=== PATIENT | female | born 1985 | race Caucasian/White ===

== ENCOUNTER → 2019-07-04 16:40 | Outpatient (CLI) | payer MEDICAID, SELFPAY ==
[2019-07-04 16:56] LABS: Basophils # 0.1 K/mm3 (0-0.2); Basophils % 1.1 % (0.1-2.0); Eosinophils # 0.2 K/mm3 (0.0-0.4); Eosinophils % 3.9 % (0.1-12.0); Hematocrit 35.8 % (37.0-47.0); Hemoglobin 12.1 g/dL (12.2-16.2); Lymphocytes # 1.8 K/mm3 (0.7-4.5); Mean Corpuscular HGB Conc 33.9 g/dL (31.8-35.4); Mean Corpuscular Hemoglobin 32.6 pg (27.0-31.2); Mean Platelet Volume 8.5 fl (7.4-10.4); Monocytes # 0.2 K/mm3 (0.1-1.0); Monocytes % 4.2 % (1.7-9.3); Neutrophils % 48.8 % (37.0-80.0); Platelet Count 159 K/mm3 (142-424); Red Blood Count 3.73 M/mm3 (4.20-5.40); Red Cell Distribution Width 13.3 % (11.5-17.5); White Blood Count 4.2 K/mm3 (4.8-10.8)
[2019-07-04 17:07] LABS: Monoscreen (Rapid) Negative (Negative)
[2019-07-04 19:00] LABS: Alanine Aminotransferase 81 U/L (12-78); Albumin Level 3.6 gm/dL (3.4-5.0); Albumin/Globulin Ratio 1.3 (1.1-1.8); Alkaline Phosphatase 45 U/L (46-116); Anion Gap 9.3 mEq/L (5-15); Aspartate Amino Transferase 60 U/L (15-37); Bilirubin,Total 0.3 mg/dL (0.2-1.0); Blood Urea Nitrogen 10 mg/dL (7-18); Calcium 8.5 mg/dL (8.5-10.1); Carbon Dioxide 28 mmol/L (21.0-32.0); Chloride 107 mmol/L (98-107); Creatinine,Serum 0.96 mg/dL (0.55-1.02); Estimated Glomerular Filt Rate 67 ml/min (>60); GFR (African American) 81 ML/MIN (>60); Globulin 2.8 gm/dl (1.3-3.2); Glucose 84 mg/dL (74-106); Potassium 4.3 mmoL/L (3.5-5.1); Sodium 140 mmol/L (136-145); T4 (Thyroxine) 7.5 ug/dl (4.7-13.3); Thyroid Stimulating Hormone 0.42 uIU/ml (0.358-3.740); Total Protein,Serum 6.4 gm/dL (6.4-8.2)
== END ==
PROVIDERS: Visit Provider Nurse Practitioner Family
DX: J02.9 Acute pharyngitis, unspecified (principal); R13.10 Dysphagia, unspecified
CPT/HCPCS: 36415; 80053; 84436; 84443; 85025; 86318

== ENCOUNTER → 2019-07-21 14:04 | Outpatient (CLI) | payer MEDICAID, SELFPAY ==
[2019-07-21 16:38] LABS: Amphetamine/Metha Screen,Urine Positive ng/mL (<1000); Barbiturates Screen,Urine Negative ng/mL (<200); Benzodiazepines Screen,Urine Positive ng/mL (<200); Cannabinoid Screen,Urine Negative ng/mL (<50); Cocaine Screen,Urine Negative ng/mL (<300); Methadone Screen,Urine Negative ng/mL (<300); Opiate Screen,Urine Negative ng/mL (<300); Phencyclidine Screen,Urine Negative ng/mL (<25)
== END ==
PROVIDERS: Visit Provider Emergency Medicine
DX: Z79.899 Other long term (current) drug therapy (principal)
CPT/HCPCS: 80305

== ENCOUNTER → 2019-08-04 12:50 | Outpatient (CLI) | payer MEDICAID, SELFPAY ==
[2019-08-04 13:23] LABS: Amphetamine/Metha Screen,Urine Negative ng/ml (<1000); Barbiturates Screen,Urine Negative ng/ml (<200)
[2019-08-04 13:24] LABS: Benzodiazepines Screen,Urine Negative ng/ml (<200)
[2019-08-04 13:25] LABS: Cannabinoid Screen,Urine Negative ng/ml (<50)
[2019-08-04 13:26] LABS: Cocaine Screen,Urine Negative ng/ml (<300); Methadone Screen,Urine Negative ng/ml (<300)
[2019-08-04 13:27] LABS: Opiate Screen,Urine Negative ng/ml (<300); Phencyclidine Screen,Urine Negative ng/ml (<25)
== END ==
PROVIDERS: Visit Provider Nurse Practitioner Psychiatric/Mental Health
DX: F11.10 Opioid abuse, uncomplicated (principal)
CPT/HCPCS: 80305

== ENCOUNTER → 2019-08-07 11:56 | Outpatient (CLI) | payer MEDICAID, SELFPAY ==
[2019-08-07 12:33] LABS: Barbiturates Screen,Urine Negative ng/ml (<200)
[2019-08-07 12:34] LABS: Amphetamine/Metha Screen,Urine Negative ng/ml (<1000); Benzodiazepines Screen,Urine Negative ng/ml (<200)
[2019-08-07 12:35] LABS: Cannabinoid Screen,Urine Negative ng/ml (<50)
[2019-08-07 12:36] LABS: Cocaine Screen,Urine Negative ng/ml (<300); Methadone Screen,Urine Negative ng/ml (<300)
[2019-08-07 12:37] LABS: Opiate Screen,Urine Negative ng/ml (<300)
[2019-08-07 12:38] LABS: Phencyclidine Screen,Urine Negative ng/ml (<25)
== END ==
PROVIDERS: Visit Provider Nurse Practitioner Psychiatric/Mental Health
DX: F19.20 Other psychoactive substance dependence, uncomplicated (principal)
CPT/HCPCS: 80305

== ENCOUNTER → 2019-10-30 13:01 | Outpatient (CLI) | payer MEDICAID, SELFPAY ==
[2019-10-30 13:34] LABS: Benzodiazepines Screen,Urine Negative ng/ml (<200)
[2019-10-30 13:35] LABS: Amphetamine/Metha Screen,Urine Negative ng/ml (<1000); Barbiturates Screen,Urine Negative ng/ml (<200)
[2019-10-30 13:36] LABS: Cannabinoid Screen,Urine Positive ng/ml (<50)
[2019-10-30 13:37] LABS: Methadone Screen,Urine Negative ng/ml (<300)
[2019-10-30 13:38] LABS: Opiate Screen,Urine Negative ng/ml (<300)
[2019-10-30 13:39] LABS: Phencyclidine Screen,Urine Negative ng/ml (<25)
[2019-11-07 22:10] LABS: Benzoylecgonine (GC/MS) 111520 ng/mL (Cutoff=150); Cocaine + Metabolite Positive (.)
== END ==
PROVIDERS: Visit Provider Nurse Practitioner Psychiatric/Mental Health
DX: Z02.83 Encounter for blood-alcohol and blood-drug test (principal); Z79.899 Other long term (current) drug therapy
CPT/HCPCS: 80305; 80353

== ENCOUNTER → 2020-01-07 13:46 | Outpatient (CLI) | payer MEDICAID, SELFPAY | PROVIDERS: PCP Nurse Practitioner Family; Visit Provider Emergency Medicine | DX: R56.9 Unspecified convulsions (principal) ==

== ENCOUNTER 2020-02-19 13:37 | Emergency (ER) | payer MEDICAID, SELFPAY ==
[2020-02-19 14:22] VITALS: BP 129/81; PULSE 110; RESP 21; TEMP 36.9; O2SAT 99; BMI 45.3
--- NOTE | 2020-02-19 14:32 | HMH.EDUTC ---
[facility] [place] Disposition Clinical Impression: Vomiting and diarrhea Disposition: Home, Self-Care Condition on Discharge: Good Instructions: Diarrhea, DI for Vomiting -- Adult, Nausea and Vomiting-Adult, Ondansetron Additional Instructions: ? Drink extra fluids with and between meals. If you have difficulty drinking, try very small amounts of water or suck on ice chips. ? Avoid fruit juices, as these do not replace minerals and can actually increase diarrhea. ? Children and adults can use sports drinks to replenish electrolytes. Younger children and infants should use products formulated for children, like oral rehydration solutions. ? Eat food in small amounts and let your stomach recover. ? Get lots of rest. You may feel tired or weak. ? No greasy or fried foods for the next 24-48 hours BRAT diet Bananas Rice Apples and [place] ? Make sure to drink plenty of liquids ? Return if needed ? Straight to ER if any life threatening symptoms ? Zofran as prescribed ? You was given an outpatient order for diarrhea panel, please collect specimen and bring back to outpatient lab then call back to the [facility] [place] or follow up with family doctor for results ? Follow up with family doctor in the next 48-72 hours if no improvement or any worsening of symptoms Prescriptions: Ondansetron [Zofran 4mg ODT] 4 mg PO Q8HP PRN #6 tab.rapdis PRN Reason: Nausea Transmission Status: Pending to [id number] Referrals: Jakub Babb MD [Primary Care Provider] - As needed Time of Disposition: 15:09 Medical Decision Making - Lucian Inquiry Pt receiving controlled substance: No Lucian was queried for this patient: No Vital Signs: 02/19/20 14:22 Temperature 98.4 F Temperature Source Oral Pulse Rate [Right Brachial] 110 H Respiratory Rate 21 Blood Pressure [Right Arm] 129/81 Blood Pressure Mean [Right Arm] 97 Blood Pressure Source [Right Arm] Automatic Cuff Blood Pressure Position [Right Arm] Sitting 02 Sat by Pulse Oximetry 99 Oxygen Delivery Method Room Air Orders (Tests/Meds): ED MEDICATIONS Discontinued Medications Generic Name Dose Route Start Last Admin Trade Name Freq PRN Reason Stop Dose Admin Ondansetron HCl 4 mg 02/19/20 14:36 02/19/20 14:54 Zofran 4mg Odt SL 02/19/20 14:37 4 mg ONCE ONE Administration ORDERS Category Date Time Status Covid-19 Nasal PCR Sendout [facility] 02/19/20 14:47 Received Medical Decision Narrative: No vomiting or diarrhea since arrival Upon discharge patient reports that she is out of her seroquil wanting refil called pharmacy and approved 1 week (7days) [place] of her seroquil 400mg daily and she would need to make appointment with Ivory Monae for refill [facility] [place] HPI - General Stated complaint: Vomiting, diarrhea, fever Time Seen by Provider: 02/19/20 14:32 Mode of Arrival: Ambulatory Source of Information: Patient Limitations: No Limitations Description of Symptoms (Recalled from Triage Doc. by RN): PATIENT C/O VOMITING, DIARRHEA, AND INSOMNIA X 2 DAYS. STATES SHE DID HAVE A LOW-GRADE FEVER THIS MORNING HEENT Symptoms (Recalled from RN notes): No Resp Symptoms (Recalled from RN notes): No Skin Symptoms (Recalled from RN notes): No MS Symptoms (Recalled from RN notes): No Functional Status (Recalled from RN notes): WNL - History of Present Illness Provider Complaint: Patient states that she has been having vomiting and diarrhea for the last 2 days States that she has been able to keep down some fluids but no food States that she has been having body aches and chills also and this morning had a low grade fever - Related Data Home Medications Medication Instructions Recorded Confirmed multivit,Ca,suo-jdzx-HE-guarana-caff tab PO 06/30/19 01/19/20 18 mg iron-400 mcg-180 mg tablet atorvastatin 40 mg tablet 40 mg PO DAILY tab 10/28/19 01/19/20 naltrexone microspheres 380 mg mg IM 12/02/19 01/19/20 intramuscular suspension,extended release Previous Rx's
[2020-02-19 15:08] VITALS: PULSE 80
[2020-02-19 15:15] VITALS: BP 129/81; PULSE 80; RESP 21; TEMP 36.9; O2SAT 99
[2020-02-21 14:41] LABS: Covid-19 Nasal PCR Sendout Lex Not Detected
== END 2020-02-19 15:16 | disposition home or self-care (01) ==
PROVIDERS: Emergency Provider Nurse Practitioner; PCP Emergency Medicine
DX: R11.10 Vomiting, unspecified (principal); Z03.818 Encounter for observation for suspected exposure to other biological agents ruled out; F41.8 Other specified anxiety disorders; F12.10 Cannabis abuse, uncomplicated; Z87.891 Personal history of nicotine dependence; Z21 Asymptomatic human immunodeficiency virus [HIV] infection status
CPT/HCPCS: 99202; U0004

== ENCOUNTER → 2020-08-31 14:33 | Outpatient (CLI) | payer MEDICAID, SELFPAY ==
--- NOTE | 2020-08-31 14:33 | CT_ITS ---
PROCEDURE: CT ABDOMEN PELVIS WO CON CLINICAL INDICATION: recurrent hernia with mesh COMPARISON: No exams were available for comparison TECHNIQUE: Axial images obtained with sagittal and coronal reformats. All CT scans at the facility use one or more dose reduction, viz: automated exposure control, ma/kV adjustment per patient size (including targeted exams where dose is matched to indication, i.e. head), or iterative reconstruction technique. FINDINGS: LOWER THORAX: 4 mm noncalcified nodule right middle lobe along the minor fissure. Small cluster of calcified nodules in the left lower lobe. 4 mm subpleural nodule right lower lobe ABDOMEN & PELVIS: Cholelithiasis. Indeterminate 7 mm hypodense nodule in the right hepatic lobe posteriorly and medially. Indeterminate 4 mm nodule right hepatic lobe posteriorly. The spleen, adrenal glands, pancreas, and kidneys have an unremarkable unenhanced appearance. There scattered small retroperitoneal lymph nodes. There is a surgical clip in the right upper quadrant anterior to the left hepatic lobe. There are postsurgical changes from ventral hernia repair 3.6 cm cephalad to the umbilicus. There is a hernia sac containing fat anterior to the mesh into the subcutaneous tissues. There are no previous exams available to determine if this is new or old. Mesh is present deep to this region along the abdominal wall. Tiny umbilical hernia containing fat is noted. Mesh is also posterior to the umbilical region. No evidence of appendicitis. No intestinal obstruction or free air. Tubal ligation clips are present in the adnexal region. No pelvic mass or abnormal fluid collection. Air density noted in the region the vagina consistent with a tampon. No acute bony findings. IMPRESSION: 1. Prior hernia repair with surgical mesh noted posterior to the supraumbilical ventral abdominal wall hernia and small umbilical hernia. There is a hernia sac containing fat within the subcutaneous tissues in the supraumbilical region. Correlation with old exam suggested if available to determine if this is new or old. No previous studies available at this institution 2. Cholelithiasis 3. Nonspecific hypodensities of the liver. These may be better evaluated with CT or MRI with hemangioma protocol 4. Small pulmonary nodules which are nonspecific. Annual follow-up may confirm stability Dictated by: Ephraim Garcia MD 09/01/2020 06:38 Ephraim Garcia MD in [place] 09/01/2020 06:38
== END ==
PROVIDERS: PCP Emergency Medicine; Visit Provider Surgery
DX: K43.9 Ventral hernia without obstruction or gangrene (principal)
CPT/HCPCS: 74176

== ENCOUNTER → 2020-09-07 10:51 | Outpatient (CLI) | payer MEDICAID, SELFPAY ==
[2020-09-07 11:34] LABS: Basophils # 0.1 K/mm3 (0-0.2); Basophils % 0.7 % (0.1-2.0); Eosinophils # 0.2 K/mm3 (0.0-0.4); Eosinophils % 2.7 % (0.1-12.0); Hemoglobin 13.8 g/dL (12.2-16.2); Lymphocytes % 28.7 % (10-50); Mean Corpuscular HGB Conc 33.7 g/dL (31.8-35.4); Mean Corpuscular Hemoglobin 31.9 pg (27.0-31.2); Mean Corpuscular Volume 94.5 fl (81-99); Mean Platelet Volume 8.1 fl (7.4-10.4); Monocytes # 0.2 K/mm3 (0.1-1.0); Monocytes % 3.2 % (1.7-9.3); Neutrophils # 4.5 K/mm3 (1.8-7.8); Neutrophils % 64.7 % (37.0-80.0); Platelet Count 199 K/mm3 (142-424); Red Blood Count 4.34 M/mm3 (4.20-5.40); Red Cell Distribution Width 14.5 % (11.5-17.5)
[2020-09-07 11:40] LABS: Chloride 107 mmol/L (98-107)
[2020-09-07 11:41] LABS: Potassium 4.3 mmoL/L (3.5-5.1); Sodium 138 mmol/L (136-145)
[2020-09-07 11:44] LABS: Anion Gap 14.3 mEq/L (5-15); Blood Urea Nitrogen 15 mg/dl (7-17); Calcium 9.4 mg/dl (8.4-10.2); Carbon Dioxide 21 mmol/L (22.0-30.0); Estimated Glomerular Filt Rate 72 ml/min (>60); GFR (African American) 87 ML/MIN (>60); Glucose 132 mg/dl (74-100)
[2020-09-07 12:01] LABS: Coronavirus 19 IgG Antibody Negative (Negative); Coronavirus 19 IgM Antibody Negative (Negative)
[2020-09-09 06:38] LABS: HCG Qualitative, Serum Negative (Negative)
== END ==
PROVIDERS: Visit Provider Surgery
DX: Z01.812 Encounter for preprocedural laboratory examination (principal); Z20.822 Contact with and (suspected) exposure to COVID-19; K43.9 Ventral hernia without obstruction or gangrene
CPT/HCPCS: 36415; 80048; 84703; 85025; 86328

== ENCOUNTER 2020-09-09 10:20 | Day surgery (SDC) | payer MEDICAID, SELFPAY ==
[2020-09-06 09:42] VITALS: BMI 32.8
[2020-09-09] VITALS (9 sets, daily range): BP systolic 113–165; BP diastolic 55–92; PULSE 77–115; RESP 12–18; TEMP 36.1–36.4; O2SAT 94–100
[2020-09-09 10:02] LABS: Microscopic, Urine URINE MICROSCOPIC (MICROSCOPIC)
[2020-09-09 10:40] LABS: Appearance,Urine CLEAR (Clear); Bilirubin,Urine Negative (Negative); Blood, Urine 3+ (Negative); Color,Urine YELLOW (Yellow); Glucose,Urine (UA) Negative (Negative); Ketones,Urine Negative (Negative); Leukocyte Esterase,Urine Negative (Negative); Nitrate,Urine POSITIVE (Negative); Protein,Urine Negative (Negative); Specific Gravity, Urine 1.025 (1.005-1.030); Urobilinogen,Urine 0.2 EU/dl (0.2)
[2020-09-09 10:41] LABS: Urine Pregnancy, HCG Qual. Negative (Negative)
--- NOTE | 2020-09-09 12:56 | P.OP_ITS ---
Date of procedure: 09/09/20 Pre-op Diagnosis:: Recurrent periumbilical hernia with retained hernia sac Post-op Diagnosis:: Same Procedure performed:: Repair of recurrent periumbilical hernia with excision of hernia sac/incarcerated preperitoneal fat Surgeon:: Alonzo Cooper MD PRIMARY TEACHING ASSISTANT:: Sushant Beatty Anesthesia: LMA Estimated blood loss (mL): 10 Operative findings:: Recurrent hernia with incarcerated preperitoneal fat/retained hernia sac Operative note:: After informed consent was obtained the patient was taken to the operating room and placed in the supine position. Her abdomen was prepped and draped in a sterile fashion. After infiltration with local anesthetic a supraumbilical incision was made. The deep subcutaneous tissue was dissected with electrocautery. A large lobulated hernia sac/incarcerated preperitoneal fat was freed from surrounding tissue. The hernia sac with incarcerated preperitoneal fat was excised at its base. Electrocautery was utilized to achieve hemostasis. The hernia sac/preperitoneal fat was passed off for pathologic evaluation. The remaining fascial defect was reapproximated with interrupted 0 Ethibond. The wound was irrigated and skin was closed with running 3 oh strata fix. Dressings were applied and the patient was transferred to recovery in stable condition after removal of her laryngeal mask airway. Condition: stable Disposition: PACU Specimens:: Hernia sac/incarcerated preperitoneal fat Complications:: No immediate
--- NOTE | 2020-09-09 12:57 | P.PN_ITS ---
[facility] Anesthesia Checklist - Structural Data Admitted From: Home Planned Operative Procedure/s: umbilical hernia rpr Consent for Planned Operative Procedure(s) Verified: Yes - Additional verifications Anesthesia Reactions: No Hx Blood Transfusions: No Blood Transfusion Reaction: No - Airway Assessment C-Spine Mobility Assessed: Yes TMJ Mobility Assessed: Yes Dentition: Edentulous - Neurological Assessment Level of Consciousness: Awake, Alert, Appropriate - Anesthesia Plan Anesthesia Risk discussed: Yes Anesthesia Plan: Verified ASA Class: III Anesthesia Type: General [facility] History I have reviewed the patient's past medical history: Yes Medical History: Reports:: Aneurysm, Anxiety, Cerebrovascular Accident, Depression, Seizures (last approx 2-3 weeks ago), Valvular Heart Disease Denies:: Cancer, Diabetes Mellitus Type 1, Diabetes Mellitus Type 2, Internal Pacemaker, MRSA *Have you ever received a pneumonia vaccine?: No *Have you received a flu vaccine this season?: No Other Medical History: Denies: Blood Transfusion Reaction, Acquired Immunodeficiency Syndrome (AIDS) Anesthesia experience/problems:: none Other Surgeries: Yes: , Hernia Repair, Tubal Ligation, Other. No: Pacemaker Amputation: No Fractures: No - *Social History Last grade of school completed: 11th or 12th Smoking Status: Current every day smoker Tobacco Type: cigarettes # Packs/Day (cigarettes): 2 Alcohol Intake: never Substance Use Type: marijuana *Occupational Status:: disabled Housing: house Household Members: significant other *Travel in the last 8 weeks: None - Psychiatric History Pschychiatric History:: Reports:: Anxiety, Depression Family Hx:: Cancer, Heart Attack
--- NOTE | 2020-09-09 12:57 | P.PN_ITS ---
[facility] [place] Anesthesia Record Part I Intake, IV Amount: 1,500 Estimated blood loss (mL): 0 Urine output (mL): 0 Blood Pressure: 137/90 SaO2: 94 Pulse Rate: 115 Respiratory Rate: 12 Temperature: 97.5 F Patient is:: Awake, Stable Stable to PACU at:: 12:55
--- NOTE | 2020-09-09 13:50 | SUR.PHASEII ---
PT IS VERY ANXIOUS TO BE DISCHARGED, PT IS STABLE, VSS. AMBULATED OUT WITH SIGNIFICANT OTHER.
--- NOTE | 2020-09-13 07:41 | HMH.ANESII ---
[facility] Anesthesia Record Part II Discharge Time: 13:25 Destination: Surgical Day Care (OP Surgery) PACU nurse assessment reviewed?: Yes Patient Condition:: Good Anesthesia Complications:: None Swallowing reflex intact?: Yes Cyanosis?: No Blood Pressure: 117/77 Pulse Rate: 97 Temperature: 97.4 F Mental Status: Alert & Oriented Pain level:: 7 Nausea and/or vomitting:: None Intake, IV Amount: 0
[2020-09-13 07:42] VITALS: BP 117/77; PULSE 97; TEMP 36.3
== END 2020-09-09 13:51 | disposition home or self-care (01) ==
LOC: OR 10:21
PROVIDERS: PCP Emergency Medicine; Visit Provider Surgery
PROC: (CPT 49587; principal; 2020-09-09 12:30)
DX: K42.0 Umbilical hernia with obstruction, without gangrene (principal); I72.9 Aneurysm of unspecified site; F41.9 Anxiety disorder, unspecified; F32.9 Major depressive disorder, single episode, unspecified; R56.9 Unspecified convulsions; I67.89 Other cerebrovascular disease; Z86.73 Personal history of transient ischemic attack (TIA), and cerebral infarction without residual deficits; Z72.0 Tobacco use; Z80.0 Family history of malignant neoplasm of digestive organs; Z82.3 Family history of stroke; Z79.899 Other long term (current) drug therapy
CPT/HCPCS: 49587; 81001; 81025; 96374; J2405

== ENCOUNTER → 2021-12-08 07:07 | Outpatient (CLI) | payer MEDICAID, SELFPAY ==
[2021-12-07 17:11] LABS: Basophils % 0.4 % (0.1-2.0); Eosinophils # 0.3 K/mm3 (0.0-0.4); Hematocrit 38.4 % (37.0-47.0); Lymphocytes # 2.1 K/mm3 (0.7-4.5); Lymphocytes % 30.9 % (10-50); Mean Corpuscular HGB Conc 33.9 g/dL (31.8-35.4); Mean Corpuscular Hemoglobin 31.7 pg (27.0-31.2); Mean Corpuscular Volume 93.5 fl (81-99); Mean Platelet Volume 8.9 fl (7.4-10.4); Monocytes # 0.2 K/mm3 (0.1-1.0); Monocytes % 3.6 % (1.7-9.3); Neutrophils # 4.1 K/mm3 (1.8-7.8); Neutrophils % 61.1 % (37.0-80.0); Platelet Count 178 K/mm3 (142-424); Red Cell Distribution Width 14.4 % (11.5-17.5); White Blood Count 6.7 K/mm3 (4.8-10.8)
[2021-12-07 17:14] LABS: Alanine Aminotransferase 59 U/L (12-78); Albumin Level 4.1 g/dl (3.5-5.0); Albumin/Globulin Ratio 1.3 (1.1-1.8); Alkaline Phosphatase 71 U/L (38-126); Anion Gap 14.2 mEq/L (5-15); Aspartate Amino Transferase 54 U/L (14-36); Blood Urea Nitrogen 17 mg/dl (7-17); Calcium 8.9 mg/dl (8.4-10.2); Carbon Dioxide 20 mmol/L (22.0-30.0); Chloride 107 mmol/L (98-107); Chol/HDL Ratio 4.4 (1-3.5); Cholesterol 200 mg/dl (140-200); Estimated Glomerular Filt Rate 95 ml/min (>60); GFR (African American) 115 ML/MIN (>60); Globulin 3.1 g/dL (1.3-3.2); Glucose 112 mg/dl (74-100); HDL Cholesterol 45 mg/dl (40-60); Potassium 4.2 mmoL/L (3.5-5.1); Sodium 137 mmol/L (136-145); Total Protein,Serum 7.2 g/dl (6.3-8.2); Triglycerides 137 mg/dl (30-150); VLDL Cholesterol 27 mg/dL (0-40)
[2021-12-07 17:17] LABS: Bilirubin,Total < 0.1 mg/dl (0.2-1.3)
[2021-12-07 17:25] LABS: Direct LDL Cholesterol 111.98 mg/dL (100-129)
[2021-12-07 17:29] LABS: Free T4 (Free Thyroxine) 0.89 ng/dl (0.78-2.19)
[2021-12-07 17:34] LABS: 25-OH Vitamin D, Total 38.2 ng/mL (30-100)
[2021-12-07 17:44] LABS: Thyroid Stimulating Hormone 1.26 uIU/mL (0.465-4.68)
== END ==
PROVIDERS: PCP Emergency Medicine; Visit Provider Emergency Medicine
DX: E66.9 Obesity, unspecified (principal); E55.9 Vitamin D deficiency, unspecified; Z68.35 Body mass index [BMI] 35.0-35.9, adult
CPT/HCPCS: 80053; 80061; 82306; 84439; 84443; 85025

== ENCOUNTER → 2021-12-16 08:05 | Outpatient (CLI) | payer MEDICAID, SELFPAY ==
--- NOTE | 2021-12-16 08:06 | FL_ITS ---
FINAL REPORT CLINICAL HISTORY: DYSPHAGIA, HX OF STROKE IN 2019, COUGHING FT: 2:04 FINDINGS: ESOPHAGRAM HISTORY: Abdominal pain, nausea. PROCEDURE: The patient ingested barium. Effervescent crystals were also administered. Spot and overhead films were obtained. FINDINGS: The esophagus is normal. There is a small sliding type hiatal hernia. There is no gastroesophageal reflux. Peristalsis is normal. A 13 mm barium tablet passed through the entirety of the esophagus. IMPRESSION: Small sliding-type hiatal hernia. Otherwise, unremarkable exam. fluoroscopy time: 2.04 minutes. Films reviewed , interpreted and dictated by Dr. Bella Transcribed by Sushant Zamora PA-C. Reviewed, Interpreted and Dictated by Christophe Bella III, MD Transcribed by CAROLYN Goins Authenticated and [facility]
== END ==
PROVIDERS: PCP Emergency Medicine; Visit Provider Emergency Medicine
DX: R13.10 Dysphagia, unspecified (principal)
CPT/HCPCS: 74220

== ENCOUNTER → 2022-02-17 11:37 | Outpatient (CLI) | payer MEDICAID, SELFPAY ==
[2022-02-17 12:05] LABS: Basophils # 0.1 K/mm3 (0-0.2); Basophils % 1.2 % (0.1-2.0); Eosinophils # 0.3 K/mm3 (0.0-0.4); Hematocrit 40.3 % (37.0-47.0); Hemoglobin 13.1 g/dL (12.2-16.2); Lymphocytes % 25.7 % (10-50); Mean Corpuscular HGB Conc 32.5 g/dL (31.8-35.4); Mean Corpuscular Hemoglobin 32.4 pg (27.0-31.2); Mean Corpuscular Volume 99.7 fl (81-99); Mean Platelet Volume 8.3 fl (7.4-10.4); Monocytes # 0.2 K/mm3 (0.1-1.0); Monocytes % 2.8 % (1.7-9.3); Neutrophils # 5.3 K/mm3 (1.8-7.8); Neutrophils % 66.4 % (37.0-80.0); Platelet Count 198 K/mm3 (142-424); Red Blood Count 4.04 M/mm3 (4.20-5.40); Red Cell Distribution Width 14.8 % (11.5-17.5)
[2022-02-17 12:35] LABS: Benzodiazepines Screen,Urine Positive ng/ml (<200)
[2022-02-17 12:36] LABS: Amphetamine/Metha Screen,Urine Negative ng/ml (<1000); Barbiturates Screen,Urine Negative ng/ml (<200)
[2022-02-17 12:37] LABS: Cannabinoid Screen,Urine Negative ng/ml (<50); Cocaine Screen,Urine Negative ng/ml (<300)
[2022-02-17 12:38] LABS: Methadone Screen,Urine Negative ng/ml (<300)
[2022-02-17 12:39] LABS: Opiate Screen,Urine Negative ng/ml (<300); Phencyclidine Screen,Urine Negative ng/ml (<25)
[2022-02-17 12:44] LABS: Alanine Aminotransferase 38 U/L (12-78); Albumin/Globulin Ratio 1.3 (1.1-1.8); Alkaline Phosphatase 108 U/L (38-126); Anion Gap 13.2 mEq/L (5-15); Aspartate Amino Transferase 38 U/L (14-36); Blood Urea Nitrogen 11 mg/dl (7-17); Calcium 8.5 mg/dl (8.4-10.2); Carbon Dioxide 26 mmol/L (22.0-30.0); Chloride 104 mmol/L (98-107); Estimated Glomerular Filt Rate 82 ml/min (>60); GFR (African American) 99 ML/MIN (>60); Globulin 3.2 g/dL (1.3-3.2); Glucose 90 mg/dl (74-100); Potassium 4.2 mmoL/L (3.5-5.1); Sodium 139 mmol/L (136-145); Total Protein,Serum 7.2 g/dl (6.3-8.2)
[2022-02-17 12:47] LABS: Bilirubin,Total < 0.1 mg/dl (0.2-1.3)
[2022-02-17 13:02] LABS: Free Thyroxine Index 1.7 ug/dL (5.93-13.13); T4 (Thyroxine) 6.1 ug/dl (5.53-11.0); Triiodothryronine (T3) Uptake 28 % (23.5-40.5)
[2022-02-17 13:15] LABS: Thyroid Stimulating Hormone 1.81 uIU/mL (0.465-4.68)
[2022-02-17 13:33] LABS: Vitamin B12 213 pg/mL (239-931)
[2022-02-26 21:23] LABS: 1,25 Dihydroxy Vitamin D 52 pg/mL (.); 1,25-Dihydroxy, Vitamin D-2 <10 pg/mL (.); 1,25-Dihydroxy, Vitamin D-3 52 pg/mL (.)
== END ==
PROVIDERS: PCP Emergency Medicine; Visit Provider Nurse Practitioner Psychiatric/Mental Health
DX: Z00.00 Encounter for general adult medical examination without abnormal findings (principal); Z02.83 Encounter for blood-alcohol and blood-drug test; Z79.899 Other long term (current) drug therapy
CPT/HCPCS: 36415; 80053; 80305; 82607; 82652; 83036; 84436; 84443; 84479; 85025

== ENCOUNTER → 2022-03-01 14:20 | Outpatient (CLI) | payer MEDICAID, SELFPAY ==
[2022-03-01 17:16] LABS: Amphetamine/Metha Screen,Urine Negative ng/ml (<1000)
[2022-03-01 17:17] LABS: Barbiturates Screen,Urine Negative ng/ml (<200); Benzodiazepines Screen,Urine Positive ng/ml (<200)
[2022-03-01 17:18] LABS: Cannabinoid Screen,Urine Negative ng/ml (<50)
[2022-03-01 17:19] LABS: Cocaine Screen,Urine Negative ng/ml (<300); Methadone Screen,Urine Negative ng/ml (<300)
[2022-03-01 17:20] LABS: Opiate Screen,Urine Negative ng/ml (<300)
[2022-03-01 17:21] LABS: Phencyclidine Screen,Urine Negative ng/ml (<25)
== END ==
PROVIDERS: PCP Emergency Medicine; Visit Provider Emergency Medicine
DX: Z79.899 Other long term (current) drug therapy (principal)
CPT/HCPCS: 80305

== ENCOUNTER → 2022-05-24 15:00 | Outpatient (CLI) | payer MEDICAID, SELFPAY ==
[2022-05-24 18:05] LABS: Amphetamine/Metha Screen,Urine Negative ng/ml (<1000); Barbiturates Screen,Urine Negative ng/ml (<200)
[2022-05-24 18:06] LABS: Benzodiazepines Screen,Urine Positive ng/ml (<200)
[2022-05-24 18:07] LABS: Cannabinoid Screen,Urine Positive ng/ml (<50); Cocaine Screen,Urine Negative ng/ml (<300)
[2022-05-24 18:08] LABS: Methadone Screen,Urine Negative ng/ml (<300)
[2022-05-24 18:09] LABS: Opiate Screen,Urine Negative ng/ml (<300); Phencyclidine Screen,Urine Negative ng/ml (<25)
== END ==
PROVIDERS: PCP Emergency Medicine; Visit Provider Emergency Medicine
DX: Z79.899 Other long term (current) drug therapy (principal)
CPT/HCPCS: 80305

== ENCOUNTER → 2022-09-26 23:19 | Outpatient (CLI) | payer MEDICAID, SELFPAY ==
[2022-09-26 20:00] LABS: Amphetamine/Metha Screen,Urine Negative ng/ml (<1000)
[2022-09-26 20:01] LABS: Barbiturates Screen,Urine Negative ng/ml (<200)
[2022-09-26 20:04] LABS: Benzodiazepines Screen,Urine Positive ng/ml (<200)
[2022-09-26 20:05] LABS: Cannabinoid Screen,Urine Positive ng/ml (<50); Cocaine Screen,Urine Negative ng/ml (<300)
[2022-09-26 20:06] LABS: Methadone Screen,Urine Negative ng/ml (<300)
[2022-09-26 20:07] LABS: Opiate Screen,Urine Negative ng/ml (<300); Phencyclidine Screen,Urine Negative ng/ml (<25)
== END ==
PROVIDERS: PCP Emergency Medicine; Visit Provider Emergency Medicine
DX: Z79.899 Other long term (current) drug therapy (principal)
CPT/HCPCS: 80305

== ENCOUNTER → 2022-11-13 15:48 | Outpatient (CLI) | payer MEDICAID, SELFPAY ==
[2022-11-13 19:15] LABS: Amphetamine/Metha Screen,Urine Negative ng/ml (<1000)
[2022-11-13 19:16] LABS: Barbiturates Screen,Urine Negative ng/ml (<200); Benzodiazepines Screen,Urine Positive ng/ml (<200)
[2022-11-13 19:17] LABS: Cannabinoid Screen,Urine Positive ng/ml (<50)
[2022-11-13 19:18] LABS: Cocaine Screen,Urine Negative ng/ml (<300); Methadone Screen,Urine Negative ng/ml (<300)
[2022-11-13 19:19] LABS: Opiate Screen,Urine Negative ng/ml (<300); Phencyclidine Screen,Urine Negative ng/ml (<25)
== END ==
PROVIDERS: PCP Emergency Medicine; Visit Provider Emergency Medicine
DX: F19.11 Other psychoactive substance abuse, in remission (principal)
CPT/HCPCS: 80305

== ENCOUNTER → 2022-11-17 12:33 | Outpatient (CLI) | payer MEDICAID, SELFPAY ==
--- NOTE | 2022-11-17 12:38 | XR_ITS ---
FINAL REPORT CLINICAL HISTORY: Lt foot pain, drawing inward since stroke FINDINGS: Three views of the left foot show no evidence of acute displaced fracture or dislocation of the visualized bony architecture. The joint spaces appear normal. IMPRESSION: Unremarkable exam. Reviewed, Interpreted and Dictated by Donta Jose MD Transcribed by Lucinda Salazar Authenticated and [facility]
--- NOTE | 2022-11-17 13:15 | XR_ITS ---
FINAL REPORT CLINICAL HISTORY: LT ANKLE PAIN X 1 MONTH, PT STATES SHE'S ROLLED ON SEVERAL OCCASIONS W POPPING NOISES. DENIES PREG FINDINGS: Left ankle Three views were obtained. There is no acute fracture or dislocation. The joint spaces appear normal. No soft tissue abnormality is identified. IMPRESSION: No acute process. Reviewed, Interpreted and Dictated by Donta Jose MD Transcribed by Karyn Delacruz Authenticated and [facility]
== END ==
PROVIDERS: PCP Emergency Medicine; Visit Provider Orthopaedic Surgery
DX: M79.672 Pain in left foot (principal); M25.572 Pain in left ankle and joints of left foot
CPT/HCPCS: 73610; 73630

== ENCOUNTER 2022-12-25 11:39 | Outpatient (RCR) | payer MEDICAID, SELFPAY | END 2022-12-25 13:00 | disposition home or self-care (01) | LOC: PT 11:39 | PROVIDERS: Visit Provider Orthopaedic Surgery | DX: M79.672 Pain in left foot (principal); M25.572 Pain in left ankle and joints of left foot | CPT/HCPCS: 97760 ==

== ENCOUNTER → 2023-02-19 23:45 | Outpatient (CLI) | payer MEDICAID, SELFPAY ==
[2023-02-19 18:46] LABS: Amphetamine/Metha Screen,Urine Negative ng/ml (<1000)
[2023-02-19 18:47] LABS: Barbiturates Screen,Urine Negative ng/ml (<200); Benzodiazepines Screen,Urine Positive ng/ml (<200)
[2023-02-19 18:48] LABS: Cannabinoid Screen,Urine Positive ng/ml (<50)
[2023-02-19 18:49] LABS: Cocaine Screen,Urine Negative ng/ml (<300); Methadone Screen,Urine Negative ng/ml (<300)
[2023-02-19 18:50] LABS: Opiate Screen,Urine Positive ng/ml (<300)
[2023-02-19 18:51] LABS: Phencyclidine Screen,Urine Negative ng/ml (<25)
== END ==
PROVIDERS: PCP Emergency Medicine; Visit Provider Emergency Medicine
DX: F41.9 Anxiety disorder, unspecified (principal)
CPT/HCPCS: 80305

== ENCOUNTER → 2023-06-05 23:43 | Outpatient (CLI) | payer MEDICAID, SELFPAY ==
[2023-06-05 20:42] LABS: Amphetamine/Metha Screen,Urine Negative ng/ml (<1000); Barbiturates Screen,Urine Negative ng/ml (<200); Benzodiazepines Screen,Urine Positive ng/ml (<200); Cannabinoid Screen,Urine Positive ng/ml (<50); Cocaine Screen,Urine Negative ng/ml (<300); Methadone Screen,Urine Negative ng/ml (<300); Opiate Screen,Urine Negative ng/ml (<300); Phencyclidine Screen,Urine Negative ng/ml (<25)
== END ==
LOC: LAB.DROPOF 23:44
PROVIDERS: PCP Family Medicine; Visit Provider Family Medicine
DX: M79.2 Neuralgia and neuritis, unspecified (principal); N39.0 Urinary tract infection, site not specified; B96.29 Other Escherichia coli [E. coli] as the cause of diseases classified elsewhere; Z79.899 Other long term (current) drug therapy
CPT/HCPCS: 80307; 87086

== ENCOUNTER 2023-10-09 19:05 | Outpatient (CLI) | payer MEDICAID, SELFPAY ==
[2023-10-09 19:51] LABS: Alanine Aminotransferase 19 U/L (12-78); Albumin Level 4.3 g/dl (3.5-5.0); Albumin/Globulin Ratio 1.4 (1.1-1.8); Alkaline Phosphatase 86 U/L (38-126); Anion Gap 15.3 mEq/L (5-15); Aspartate Amino Transferase 23 U/L (14-36); Bilirubin,Total 0.4 mg/dl (0.2-1.3); Blood Urea Nitrogen 13 mg/dl (7-17); Calcium 9.8 mg/dl (8.4-10.2); Carbon Dioxide 19 mmol/L (22.0-30.0); Chloride 110 mmol/L (98-107); Chol/HDL Ratio 5.4 (1-3.5); Cholesterol 295 mg/dl (140-200); Estimated Glomerular Filt Rate 62 ml/min (>60); GFR (African American) 75 ML/MIN (>60); Glucose 89 mg/dl (74-100); HDL Cholesterol 55 mg/dl (40-60); Potassium 4.3 mmoL/L (3.5-5.1); Sodium 140 mmol/L (136-145); Total Protein,Serum 7.3 g/dl (6.3-8.2); Triglycerides 175 mg/dl (30-150); VLDL Cholesterol 35 mg/dL (0-40)
[2023-10-09 19:58] LABS: Basophils # 0.1 K/mm3 (0-0.2); Basophils % 0.7 % (0.1-2.0); Eosinophils # 0.2 K/mm3 (0.0-0.4); Eosinophils % 1.5 % (0.1-12.0); Hematocrit 44.6 % (37.0-47.0); Hemoglobin 14.9 g/dL (12.2-16.2); Lymphocytes # 2.5 K/mm3 (0.7-4.5); Lymphocytes % 24.4 % (10-50); Mean Corpuscular HGB Conc 33.4 g/dL (31.8-35.4); Mean Corpuscular Hemoglobin 33.2 pg (27.0-31.2); Mean Corpuscular Volume 99.5 fl (81-99); Mean Platelet Volume 10.3 fl (7.4-10.4); Monocytes # 0.4 K/mm3 (0.1-1.0); Monocytes % 4.1 % (1.7-9.3); Neutrophils % 69.3 % (37.0-80.0); Platelet Count 190 K/mm3 (142-424); Red Blood Count 4.49 M/mm3 (4.20-5.40); Red Cell Distribution Width 14.6 % (11.5-17.5); White Blood Count 10.1 K/mm3 (4.8-10.8)
[2023-10-09 20:03] LABS: Direct LDL Cholesterol 183.93 mg/dL (100-129)
[2023-10-09 20:09] LABS: 25-OH Vitamin D, Total 27.1 ng/mL (30-100)
[2023-10-09 20:41] LABS: Vitamin B12 215 pg/mL (239-931)
[2023-10-09 21:03] LABS: Hemoglobin A1C 5.4 % (4.0-6.0)
[2023-10-09 21:20] LABS: Microalbumin/Creatinine Ratio 27.6
[2023-10-09 21:24] LABS: Creatinine,Urine Random 164 mg/dL (Not Estab.)
== END 2023-10-09 23:59 | disposition home or self-care (01) ==
PROVIDERS: PCP Internal Medicine; Visit Provider Internal Medicine
DX: R79.89 Other specified abnormal findings of blood chemistry (principal); R53.83 Other fatigue; E55.9 Vitamin D deficiency, unspecified; Z68.36 Body mass index [BMI] 36.0-36.9, adult
CPT/HCPCS: 80053; 80061; 82043; 82306; 82570; 82607; 83036; 85025